=== PATIENT | female | born 1995 | race African-American/Black ===

== ENCOUNTER 2024-02-22 00:32 | Inpatient (IN) | payer OTHER ==
[~2024-02-22] VITALS: Ht 175.3 cm; Wt 55.3 kg
[2024-02-22 00:36] VITALS: O2SAT 100
[2024-02-22] MEDS: ONDANSETRON HCL 4MG/2ML INJ IV STA (00:44)
[2024-02-22] MEDS: SODIUM CHLORIDE 0.9% 1,000 ML IV ONE (00:47)
[2024-02-22 00:54] LABS: BASOPHILS % 0.5 % (0.0-2.0); EOSINOPHILS % 0.7 % (0.0-5.0); HEMATOCRIT. 34.8 % (36.0-48.0); HEMOGLOBIN. 11.6 g/dL (12.0-16.0); LYMPHOCYTES % 35.7 % (20.0-50.0); MEAN CORPUSCULAR HEMOGLOBIN 30.9 pg (28.0-32.0); MEAN CORPUSCULAR HGB CONC 33.5 g/dL (31.0-37.0); MEAN CORPUSCULAR VOLUME 92.4 fL (81.0-99.0); MEAN PLATELET VOLUME 7.5 fl (7.4-10.4); MONOCYTES % 8.2 % (2.0-8.0); NEUTROPHILS % 54.9 % (40.0-76.0); PLATELET 459 x1000/uL (130-400); RED BLOOD CELL COUNT 3.76 mill/uL (4.2-5.4); WHITE BLOOD COUNT 11.3 x1000/uL (4.5-11.0)
[2024-02-22 01:03] LABS: CHLORIDE 101 mEq/L (98-107); SODIUM 137 mEq/L (136-145)
[2024-02-22 01:04] LABS: CALCIUM 9.3 mg/dL (8.7-10.4); CARBON DIOXIDE 24 mEq/L (21-32)
[2024-02-22 01:09] LABS: CREATININE 1.1 mg/dL (0.6-1.0); GLUCOSE 214 mg/dL (70-105); UREA NITROGEN BLOOD 11 mg/dL (9-23)
[2024-02-22 01:10] LABS: HCG SCREEN NEGATIVE
[2024-02-22 01:11] LABS: ACETAMINOPHEN < 2 ug/mL (10-30)
[2024-02-22 01:44] LABS: ETHANOL BLOOD < 10 mg/dL (<10)
[2024-02-22 01:46] LABS: POTASSIUM 2.7 mEq/L (3.5-5.1)
[2024-02-22] MEDS: KCL 20MEQ/100ML PREMIX 100 ML IV SCH (03:00)
[2024-02-22] MEDS ORDERED: ACETAMINOPHEN 325MG TABLET PO PRN (10:00)
[2024-02-22] MEDS ORDERED: ONDANSETRON HCL 4MG/2ML INJ IV PRN (10:00)
[2024-02-22 12:00] VITALS: BP 123/71; PULSE 96; RESP 18; TEMP 36.28068; O2SAT 97
[2024-02-22 13:54] LABS: POTASSIUM 3.7 mEq/L (3.5-5.1)
[2024-02-22 16:00] VITALS: BP 127/78; PULSE 94; RESP 18; TEMP 36.33624; O2SAT 96
[2024-02-23 04:10] VITALS: BP 121/69; PULSE 95; RESP 20; TEMP 36.61404; O2SAT 100
[2024-02-23 14:35] VITALS: BP 136/78; RESP 18; TEMP 36.9474; O2SAT 98
[2024-02-23 16:00] VITALS: RESP 18
[2024-02-23 20:05] VITALS: BP 124/55; PULSE 91; RESP 20; TEMP 37.05852; O2SAT 100
[2024-02-24 00:05] VITALS: BP 120/68; PULSE 95; RESP 20; TEMP 36.72516; O2SAT 98
[2024-02-24 14:32] VITALS: RESP 18
[2024-02-24 16:00] VITALS: RESP 18
[2024-02-24] MEDS: SERTRALINE HCL 50MG TABLET PO SCH (16:34)
[2024-02-24] MEDS: ARIPIPRAZOLE 5MG TABLET PO SCH (16:35)
[2024-02-25 00:10] VITALS: BP 109/59; PULSE 87; RESP 20; TEMP 36.28068; O2SAT 100
[2024-02-25 08:20] VITALS: BP 131/64; PULSE 84; RESP 18; TEMP 36.89184
[2024-02-25 11:31] VITALS: BP 131/64; PULSE 84; RESP 18; TEMP 36.696; TEMP 36.6960
== END 2024-02-25 13:55 | disposition home or self-care (01) | DRG 812 ==
LOC: ER 00:32 → EDBD 00:32 → 5WST 05:34 → EDBEDREQTM 05:40 → EDBEDREQ 05:40
PROVIDERS: ADMIT Internal Medicine; ATTEND Internal Medicine
PROC: GZ56ZZZ Individual Psychotherapy, Supportive (ICD-10-PCS; principal; 2024-02-25)
DX: T40.411A Poisoning by fentanyl or fentanyl analogs, accidental (unintentional), initial encounter (principal); F31.9 Bipolar disorder, unspecified; E66.9 Obesity, unspecified; E87.6 Hypokalemia; F17.210 Nicotine dependence, cigarettes, uncomplicated; F19.10 Other psychoactive substance abuse, uncomplicated; G47.00 Insomnia, unspecified; F41.9 Anxiety disorder, unspecified; T43.226A Underdosing of selective serotonin reuptake inhibitors, initial encounter; Y92.89 Other specified places as the place of occurrence of the external cause; Z91.148 Patient's other noncompliance with medication regimen for other reason; Z59.00 Homelessness unspecified; Z68.1 Body mass index [BMI] 19.9 or less, adult; Z79.899 Other long term (current) drug therapy
CPT/HCPCS: 36415; 80048; 80307; 80320; 80329; 83036; 83735; 84132; 84703; 85025; 99285; J2405; J3480; J7030; G0480

== ENCOUNTER 2024-07-03 09:24 | Emergency (ER) | payer MEDICAID, OTHER ==
[~2024-07-03] VITALS: Ht 177.8 cm; Wt 90.0 kg
[2024-07-03 09:39] VITALS: BP 129/91; PULSE 96; RESP 18; TEMP 37.1; O2SAT 100
[2024-07-03 10:26] LABS: BASOPHILS % 0.4 % (0.0-2.0); EOSINOPHILS % 0.9 % (0.0-5.0); HEMATOCRIT. 33.8 % (36.0-48.0); HEMOGLOBIN. 11.5 g/dL (12.0-16.0); LYMPHOCYTES % 43.1 % (20.0-50.0); MEAN CORPUSCULAR HGB CONC 33.9 g/dL (31.0-37.0); MEAN CORPUSCULAR VOLUME 91.2 fL (81.0-99.0); MEAN PLATELET VOLUME 7.4 fl (7.4-10.4); MONOCYTES % 6.6 % (2.0-8.0); PLATELET 468 x1000/uL (130-400); RED BLOOD CELL COUNT 3.71 mill/uL (4.2-5.4); RED CELL DISTRIBUTION WIDTH 13.8 % (11.6-14.6); WHITE BLOOD COUNT 9.5 x1000/uL (4.5-11.0)
[2024-07-03 10:34] LABS: CHLORIDE 104 mEq/L (98-107); POTASSIUM 3.5 mEq/L (3.5-5.1); SODIUM 141 mEq/L (136-145)
[2024-07-03 10:35] LABS: CARBON DIOXIDE 25 mEq/L (21-32)
[2024-07-03 10:36] LABS: CALCIUM 9.1 mg/dL (8.7-10.4)
[2024-07-03 10:39] LABS: CLARITY URINE CLOUDY (CLEAR); COLOR URINE YELLOW (YELLOW); GLUCOSE URINE NEGATIVE (NEGATIVE); KETONES URINE 2+ (NEGATIVE); PH URINE 5.5 (4.5-8.0); PROTEIN URINE 1+ (NEGATIVE); SPECIFIC GRAVITY URINE >=1.030 (1.005-1.030)
[2024-07-03 10:40] LABS: CREATININE 0.8 mg/dL (0.6-1.0); GLUCOSE 88 mg/dL (70-105); UREA NITROGEN BLOOD 8 mg/dL (9-23)
[2024-07-03 10:40] LABS: LEUKOCYTE ESTERASE URINE TRACE (NEGATIVE); NITRITE URINE NEGATIVE (NEGATIVE); OCCULT BLOOD URINE NEGATIVE (NEGATIVE)
[2024-07-03 10:45] LABS: BACTERIA URINE 3+; SQUAMOUS EPITHELIAL CELL URINE 3+ /lpf (RARE/1+); WBC URINE 0-2 /hpf (0-2); YEAST URINE NONE SEEN
[2024-07-03] MEDS ORDERED: CEPH500T MT (11:18)
[2024-07-03] MEDS: ACETAMINOPHEN 325MG TABLET PO ONE (11:45)
== END 2024-07-03 11:41 | disposition home or self-care (01) ==
LOC: ER 09:24
DX: F15.10 Other stimulant abuse, uncomplicated (principal); Z68.28 Body mass index [BMI] 28.0-28.9, adult
CPT/HCPCS: 36415; 80048; 81003; 81025; 85025; 99283